=== PATIENT | male | born 2000 ===

== ENCOUNTER 2019-01-24 22:11 | Observation (INO) | payer SELFPAY ==
[2019-01-24] MEDS ORDERED: Ketorolac Tromethamine 30 MG/ML VIAL ONE (22:47)
[2019-01-24] MEDS ORDERED: Ondansetron PF 4 MG/2 ML Vial ONE (22:47)
[2019-01-24 23:08] LABS: Bilirubin Negative (Negative); Blood, Urine Trace (Negative); Clarity Clear (Clear); Glucose, Urine (Dipstick) Negative (Negative); Leukocyte Negative (Negative); Nitrite Negative (Negative); Protein, Urine (Dipstick) Negative (Neg-Trace); Urobilinogen 0.2 mg/dL (Less than 2)
[2019-01-24 23:08] LABS: #Basophils 0.2 thou/uL (0.0-0.2); #Lymphocytes 0.7 thou/uL (1.20-3.40); #Monocytes 1.1 thou/uL (0.11-0.59); #Neutrophils 12.2 thou/uL (1.40-6.50); %Basophils 1.7 % (0.0-1.0); %Eosinophils 0.3 % (0.0-10.0); %Monocytes 7.8 % (0.0-4.0); %Neutrophils 85.2 % (31.0-61.0); Hemoglobin 15.6 g/dL (14.0-18.0); Mean Corpuscular HGB CONC 34.8 g/dL (32.0-36.0); Mean Corpuscular Hemoglobin 31.8 pg (25.0-35.0); Mean Corpuscular Volume 91.3 fL (78.0-98.0); Mean Platelet Volume 9.3 fL (7.4-10.4); Platelet Count 159 thou/uL (130-400); RBC Distribution Width 10.9 % (11.5-14.5); Red Blood Cell (RBC) Count 4.92 mill/uL (4.00-5.20); White Blood Cell (WBC) Count 14.3 thou/uL (4.8-10.8)
[2019-01-24 23:11] LABS: Bacteria/HPF None Seen HPF (None Seen); Mucous/LPF 1+ LPF (<2+); RBC/HPF 0-3 HPF (0-3); Squamous Epithelial None Seen HPF (0-3); WBC/HPF None Seen HPF (0-3)
[2019-01-24 23:19] LABS: ALT (SGPT) 19 U/L (8-55); AST (SGOT) 21 U/L (10-45); Albumin 5.2 g/dL (3.5-5.0); Alkaline Phosphatase 83 U/L (50-130); Anion Gap 17 mmol/L (10-20); BUN (Urea Nitrogen) 12 mg/dL (8.4-21.0); Calc. Creatinine Clearance 0 mL/min (70-130); Calcium 10.1 mg/dL (7.8-10.44); Carbon Dioxide 23 mmol/L (22-29); Chloride 106 mmol/L (98-107); Estimated GFR-MDRD Greater than 90; Globulin 2.5 g/dL (2.4-3.5); Glucose 105 mg/dL (70-105); Lipase 9 U/L (8-78); Protein, Total 7.7 g/dL (6.0-8.3); Sodium 142 mmol/L (136-145)
[2019-01-24] MEDS ORDERED: Piperacillin/Tazobactam 3.375 GM VIAL ONE (23:40)
[2019-01-24] MEDS ORDERED: Sodium Chloride 0.9% 100 ML ONE (23:41)
--- NOTE | 2019-01-24 23:43 | CT ---
NONCONTRAST CT ABDOMEN AND PELVIS: 01/24/19 HISTORY: Generalized abdominal pain with nausea and vomiting and diarrhea. COMPARISON: None. FINDINGS: The visualized lung bases are clear. Lack of intravenous contrast limits sensitivity for evaluation of the parenchymal organs; however, th e liver, spleen, pancreas, bilateral adrenal glands, and kidneys, demonstrate a grossly normal nonenh anced CT appearance. No renal or ureteral calculi are seen bilaterally. There is increased density material in the ascending colon which may be related to ingestion of bismu th type material. There is what appears to be a dilated blind end tubular structure within the right lower quadrant lik daina related to the appendix with thickened lowry and adjacent periappendiceal inflammatory changes. T he appendix measures 12 mm in diameter. Trace amount of free fluid in seen in the pelvis. No fluid collection is seen. IMPRESSION: 1. Acute appendicitis. 2. Above findings discussed with Dr. Espinosa in the Emergency Department on 01/24/19 at 2332 h ours. POS: OFF
[2019-01-25] MEDS ORDERED: Ondansetron ODT 4 MG TAB SL PRN (04:42)
[2019-01-25] MEDS ORDERED: Sodium Chloride 0.9% 1,000 ML IV SCH ×3 (04:42→13:17)
[2019-01-25] MEDS ORDERED: Ketorolac Tromethamine 30 MG/ML VIAL IVP PRN (04:42)
[2019-01-25] MEDS ORDERED: Ondansetron PF 4 MG/2 ML Vial IVP PRN ×3 (04:42→13:17)
[2019-01-25 04:44] VITALS: BMI 22.9
[2019-01-25] MEDS ORDERED: Morphine 2 MG/ML SYRINGE SLOW IVP PRN ×2 (07:54→13:17)
[2019-01-25] MEDS ORDERED: Morphine 4 MG/ML VIAL SLOW IVP PRN ×2 (07:54→13:17)
[2019-01-25] MEDS ORDERED: Acetaminophen 1,000 MG in Premix Bag 1 BAG IVPB PRN (07:56)
[2019-01-25] MEDS ORDERED: Piperacillin/Tazobactam 3.375 GM in Sodium Chloride 0.9% 100 ML IVPB SCH ×3 (08:00→18:00)
--- NOTE | 2019-01-25 08:26 | HP ---
CHIEF COMPLAINT: Abdominal pain. HISTORY OF PRESENT ILLNESS: This is a 18-year-old male with a 24 hour history of pain in the mid abdomen, became more localized to the right lower quadrant last night, seen in the emergency department, where CT scan reveals acute appendicitis. Pain described as sharp 8/10, does not radiate. Nothing makes it better or worse, associated with nausea, no vomiting. No change in stools. No history of chronic abdominal pain. No history of inflammatory bowel disease. MEDICAL HISTORY: Depression. PAST SURGICAL HISTORY: Tonsils. MEDICATIONS: Lexapro. ALLERGIES: NO KNOWN DRUG ALLERGIES. SOCIAL HISTORY: No smoking, alcohol or other drugs. He is a student. REVIEW OF SYSTEMS: 10 system review of systems otherwise negative unless described above. PHYSICAL EXAMINATION: VITAL SIGNS: Blood pressure is 116/69, pulse 69, respirations 18. He is afebrile. HEENT: Sclerae anicteric. Oropharynx clear. NECK: No lymphadenopathy. CHEST: Clear. HEART: Regular rate and rhythm. ABDOMEN: Soft, tender in the right lower quadrant with localized guarding. No rebound. No abdominal or inguinal hernias. EXTREMITIES: No ischemia or edema to extremities. LABORATORY DATA: White blood cell count is 14, hemoglobin 15, platelets 159. Creatinine is 0.91. Urine is clear except for trace blood and ketones. CT scan shows acute appendicitis. ASSESSMENT: Acute appendicitis. PLAN: Laparoscopic appendectomy. Risks, benefits and alternatives discussed. He gives consent. We will do this today. Job ID: [id number]
[2019-01-25] MEDS ORDERED: Sodium Chloride 0.9% 10 ML ONE (10:48)
[2019-01-25] MEDS ORDERED: Famotidine/PF 20 mg/2ml Vial ONE (11:29)
[2019-01-25] MEDS ORDERED: Fentanyl 100 MCG/2 ML VIAL ONE (11:29)
[2019-01-25] MEDS ORDERED: Meperidine HCl/PF 25 MG/ML VIAL ONE (11:29)
[2019-01-25] MEDS ORDERED: Piperacillin/Tazobactam 3.375 GM VIAL ONE (11:31)
[2019-01-25] MEDS ORDERED: Sodium Chloride 0.9% 100 ML ONE (11:31)
[2019-01-25] MEDS ORDERED: Bupivacaine/Epinephrine 0.25% 30 ML VIAL ONE (11:34)
[2019-01-25] MEDS ORDERED: SUGAMMADEX SODIUM 500 MG/5 ML VIAL ONE (12:17)
[2019-01-25] MEDS ORDERED: Promethazine HCl 25 MG/ML VIAL IM PRN ×2 (12:38→13:17)
[2019-01-25] MEDS ORDERED: Promethazine HCl 25 MG/ML VIAL SLOW IVP PRN (12:38)
[2019-01-25] MEDS ORDERED: Ondansetron HCl/PF 4 MG/2 ML Vial IVP PRN (12:38)
--- NOTE | 2019-01-25 13:10 | OP ---
DATE OF PROCEDURE: 01/25/2019 PREOPERATIVE DIAGNOSIS: Acute appendicitis. POSTOPERATIVE DIAGNOSIS: Acute appendicitis. PROCEDURE PERFORMED: Laparoscopic appendectomy. ANESTHESIA: General. ESTIMATED BLOOD LOSS: Minimal. COMPLICATIONS: None. SPECIMEN: Appendix. FINDINGS: Appendicitis. DESCRIPTION OF PROCEDURE: The patient was taken to the operating room and placed supine on the table. After general anesthetic was obtained, a Taylor was placed. The abdomen was prepped and draped in a sterile fashion. A curved incision was made below the umbilicus. Cautery dissected down to and scored the fascia. Abdominal cavity entered bluntly using a Itzel clamp. Holding stitch of PDS was placed on each side of the fascia. Shakeel trocar was placed. High-flow pneumoperitoneum was obtained. A suprapubic 5 mm port and a left lower quadrant 5 mm port were placed under direct visualization. The cecum was rolled over to reveal acute appendicitis. A small window was made at the base of appendix and mesoappendix. Laparoscopic stapler was fired across the base of the appendix. A vascular reload was fired across the mesoappendix. The appendix was placed in EndoCatch bag and brought out through the Shakeel. There was no bleeding along the staple lines. The right lower quadrant pelvis was irrigated using sterile solution. All port sites were infiltrated using local anesthetic. All ports were removed under camera visualization without bleeding. Pneumoperitoneum was let down. PDS used to close the fascial defect below the umbilicus. All incisions were irrigated and closed using 4-0 Monocryl and Dermabond. The patient was sent to Recovery in stable condition. All instrument counts, needle counts, and lap counts were correct. Job ID: [id number]
[2019-01-25] MEDS ORDERED: hydrALAZINE 20 MG/ML VIAL SLOW IVP PRN (13:17)
[2019-01-25] MEDS ORDERED: Dextrose 5% in Water 1,000 ML IV PRN (13:17)
[2019-01-25] MEDS ORDERED: HYDROcodone/Acetaminophen 10/325 mg Tablet PO PRN (13:17)
[2019-01-25] MEDS ORDERED: Dextrose 50% Abboject 50 ML SYRINGE SLOW IVP PRN (13:17)
[2019-01-25 13:33] VITALS: BP 114/64; TEMP 97.8
[2019-01-25] MEDS ORDERED: Lidocaine 1% PF 5 ML VIAL ONE (16:08)
[2019-01-25] MEDS ORDERED: Succinylcholine Chloride 20 MG/ML 10 ml SYRINGE FS ONE (16:08)
[2019-01-25] MEDS ORDERED: Ketorolac Tromethamine 30 MG/ML VIAL ONE (16:08)
[2019-01-25] MEDS ORDERED: Metoclopramide HCl 10 MG/2 ML VIAL ONE (16:08)
[2019-01-25] MEDS ORDERED: Ondansetron PF 4 MG/2 ML Vial ONE (16:08)
[2019-01-25] MEDS ORDERED: PROPOFOL 200 MG/20 ML VIAL ONE (16:08)
[2019-01-25] MEDS ORDERED: Rocuronium Bromide 10 MG/ML (10ML VIAL) ONE (16:08)
[2019-01-25] MEDS ORDERED: Dexamethasone 20 MG/5 ML VIAL ONE (16:08)
[2019-01-25] MEDS ORDERED: Famotidine 20 MG TAB PO SCH (21:00)
[2019-01-25] MEDS ORDERED: FLU VACC QS2019-20(6MOS UP)/PF 60 MCG/0.5 ML SYRINGE IM ONE (21:00)
[2019-01-25] MEDS ORDERED: Famotidine/PF 20 mg/2ml Vial SLOW IVP SCH (21:00)
== END 2019-01-25 17:05 | disposition home or self-care (01) ==
LOC: SCSER 22:11 → SURG A 01-25 04:27
PROVIDERS: ADMIT Specialist; ATTEND Specialist
PROC: 0DTJ4ZZ Resection of Appendix, Percutaneous Endoscopic Approach (ICD-10-PCS; principal; 2019-01-25)
DX: K35.80 Unspecified acute appendicitis (principal); F32.9 Major depressive disorder, single episode, unspecified; F12.10 Cannabis abuse, uncomplicated; Z87.891 Personal history of nicotine dependence; Z79.899 Other long term (current) drug therapy
CPT/HCPCS: 74176; 80053; 81003; 81015; 83690; 85025; 88304; 96361; 96365; 96367; 96375; 96376; G0378; J0131; J1100; J1885; J2001; J2175; J2405; J2543; J2704; J2765; J3010; J3490; S0028